=== PATIENT | male | born 1955 | race Caucasian/White ===

== ENCOUNTER 2020-12-29 10:27 | Outpatient (CLI) | payer MEDICARE, BC, SELFPAY ==
--- NOTE | 2020-12-29 11:30 | NEURO_ITS ---
Impression: # Complains of numbness of all extremities. # Bilateral Carpal Tunnel Syndrome. # No ulnar neuropathy. # Needle/EMG exam mild neurogenic changes in hands and feet. # Higher involvement such as myelopathy needs to be ruled out. Nerve Conduction Studies Anti Sensory Summary Table Stim Site NR Peak (ms) P-T Amp (?V) Site1 Site2 Delta-P (ms) Dist (cm) Tam (m/s) Left Median Anti Sensory (2-3nd Digit) Wrist 4.6 33.3 Wrist 2-3nd Digit 4.6 14.0 30 Wrist 4.9 16.3 Wrist 2-3nd Digit 4.6 14.0 30 Right Median Anti Sensory (2-3nd Digit) Wrist 5.5 25.2 Wrist 2-3nd Digit 5.5 14.0 25 Wrist 5.4 38.7 Wrist 2-3nd Digit 5.5 14.0 25 Left Radial Anti Sensory (Base 1st Digit) Wrist 2.8 19.8 Wrist Base 1st Digit 2.8 0.0 Right Radial Anti Sensory (Base 1st Digit) Wrist 3.3 16.3 Wrist Base 1st Digit 3.3 0.0 Left Sup Fibular Anti Sensory (Ant Lat Mall) 14 cm 4.0 4.2 14 cm Ant Lat Mall 4.0 16.0 40 Right Sup Fibular Anti Sensory (Ant Lat Mall) 14 cm 3.7 16.2 14 cm Ant Lat Mall 3.7 16.0 43 Left Sural Anti Sensory (Lat Mall) Calf 4.1 22.4 Calf Lat Mall 4.1 17.0 41 Right Sural Anti Sensory (Lat Mall) Calf 3.4 42.3 Calf Lat Mall 3.4 16.0 47 Left Ulnar Anti Sensory (5th Digit) Wrist 3.3 26.7 Wrist 5th Digit 3.3 14.0 42 Right Ulnar Anti Sensory (5th Digit) Wrist 3.2 31.0 Wrist 5th Digit 3.2 14.0 44 Motor Summary Table Stim Site NR Onset (ms) O-P Amp (mV) Site1 Site2 Delta-0 (ms) Dist (cm) Tam (m/s) Left Lateral Plantar Motor (ADM) Med Mall 5.3 0.9 Right Lateral Plantar Motor (ADM) Med Mall 5.2 0.9 Left Median Motor (Abd Poll Brev) Wrist 4.4 2.1 Elbow Wrist 5.6 28.0 50 Elbow 10.0 2.0 Right Median Motor (Abd Poll Brev) Wrist 4.9 1.9 Elbow Wrist 5.8 28.0 48 Elbow 10.7 1.8 Left Peroneal Motor (Vastus Med) Ankle 5.2 1.8 Popit Ankle 8.3 39.0 47 Popit 13.5 1.5 Right Peroneal Motor (Vastus Med) Ankle 4.2 2.3 Popit Ankle 7.7 37.0 48 Popit 11.9 2.2 Left Tibial Motor (Abd Monteiro Brev) Ankle 4.9 3.6 Knee Ankle 8.3 40.0 48 Knee 13.2 2.4 Right Tibial Motor (Abd Monteiro Brev) Ankle 4.6 6.0 Knee Ankle 9.3 40.0 43 Knee 13.9 4.5 Left Ulnar Motor (Abd Dig Minimi) Wrist 3.3 3.2 A Elbow Wrist 6.5 30.0 46 A Elbow 9.8 3.3 Right Ulnar Motor (Abd Dig Minimi) Wrist 3.3 4.4 A Elbow Wrist 6.9 31.0 45 A Elbow 10.2 3.5 F Wave Studies NR F-Lat (ms) L-R F-Lat (ms) Left Median (Mrkrs) (Abd Poll Brev) 30.82 1.11 Right Median (Mrkrs) (Abd Poll Brev) 31.93 1.11 Left Peroneal (Mrkrs) (EDB) 55.67 0.11 Right Peroneal (Mrkrs) (EDB) 55.77 0.11 Left Tibial (Mrkrs) (Abd Hallucis) 54.11 0.42 Right Tibial (Mrkrs) (Abd Hallucis) 54.53 0.42 Left Ulnar (Mrkrs) (Abd Dig Min) 33.92 2.51 Right Ulnar (Mrkrs) (Abd Dig Min) 31.40 2.51 EMG Side Muscle Nerve Root Ins Act Fibs Amp Dur Recrt Comment Right 1stDorInt Ulnar C8-T1 Nml Nml Nml Nml Nml Right Ext Indicis Radial (Post Int) C7-8 Nml Nml Nml Nml Nml Right Ext Digitorum Radial (Post Int) C7-8 Nml Nml Nml Nml Nml Right BrachioRad Radial C5-6 Nml Nml Nml Nml Nml Right
== END 2020-12-29 10:28 | disposition home or self-care (01) ==
PROVIDERS: PCP Family Medicine; Visit Provider Nurse Practitioner Family
DX: R20.2 Paresthesia of skin (principal); G56.03 Carpal tunnel syndrome, bilateral upper limbs
CPT/HCPCS: 95886; 95913

== ENCOUNTER 2021-01-16 15:32 | Outpatient (CLI) | payer MEDICARE, BC, SELFPAY ==
--- NOTE | ~2021-01-16 | MR_ITS ---
EXAMINATION: MR cervical spine wo/w con DATE: 01/16/2021 16:36 INDICATION: Cervical myelopathy. TECHNIQUE: Magnetic resonance imaging (MRI) of the cervical spine was performed without and with 15 m L MultiHance intravenous contrast. Sequences included sagittal and axial T2-weighted FSE, sagittal ST IR FSE, and sagittal and axial T1-weighted FSE. Postcontrast sequences included sagittal and axial T1 -weighted FS FSE. COMPARISON: None FINDINGS: There is 5 degrees dextrocurvature of cervical spine. Vertebral body heights are normal. Th ere is moderately decreased disc height at C3-C4 and severely decreased disc height from C4-C5 throug h C6-C7. There is edema and enhancement of the C3-C4 endplates, spinous processes, and interspinous l igament, consistent with degenerative inflammation. There is increased T2-weighted signal intensity i n the spinal cord at C3-C4, consistent with myelomalacia. The following disc levels are specifically discussed: C2-C3: The disc does not extend beyond the endplate margin. There is no uncovertebral joint osteoarth ritis. There is mild bilateral facet joint osteoarthritis. There is no neural foraminal stenosis. The re is no central canal stenosis. C3-C4: The disc is bulging and has an annular fissure. There is severe bilateral uncovertebral joint osteoarthritis. There is severe bilateral facet joint osteoarthritis. There is moderate right and sev ere left neural foraminal stenosis. There is severe central canal stenosis with ventral and dorsal in dentation of spinal cord and abnormal T2-weighted signal intensity of the spinal cord, consistent wit h myelomalacia. C4-C5: The disc is bulging. There is moderate right and severe left uncovertebral joint osteoarthriti s. There is moderate bilateral facet joint osteoarthritis. There is mild right and moderate left neur al foraminal stenosis. There is mild central canal stenosis. C5-C6: The disc is bulging. There is severe bilateral uncovertebral joint osteoarthritis. There is mi ld bilateral facet joint osteoarthritis. There is mild right and moderate left neural foraminal steno sis. There is mild central canal stenosis with ventral indentation of the spinal cord. C6-C7: The disc is bulging. There is severe bilateral uncovertebral joint osteoarthritis. There is mi ld bilateral facet joint osteoarthritis. There is mild right and moderate left neural foraminal steno sis. There is mild central canal stenosis. C7-T1: The disc does not extend beyond the endplate margin. There is no uncovertebral joint osteoarth ritis. There is severe right and moderate left facet joint osteoarthritis. There is mild bilateral ne ural foraminal stenosis. There is no central canal stenosis. IMPRESSION: 1. Myelomalacia at C3-C4. 2. Severe cervical spondylosis. Reviewed, dictated and finalized at location A. O FLOATER
[2021-01-16 16:00] LABS: Estimated Glomerular Filt Rate > 60
== END 2021-01-16 15:33 | disposition home or self-care (01) ==
PROVIDERS: PCP Family Medicine; Visit Provider Psychiatry & Neurology Neurology
DX: G95.89 Other specified diseases of spinal cord (principal); M47.812 Spondylosis without myelopathy or radiculopathy, cervical region
CPT/HCPCS: 72156; A9577

== ENCOUNTER 2023-11-01 16:03 | Inpatient (IN) | payer MEDICARE, BC, SELFPAY ==
[2023-11-01] VITALS (12 sets, daily range): BP systolic 74–105; BP diastolic 61–84; PULSE 121–158; RESP 13–32; TEMP 36.3–37.7; O2SAT 91–100; BMI 31.7
--- NOTE | ~2023-11-01 | CT_ITS ---
EXAMINATION: CT brain wo con DATE: 11/01/2023 17:47 INDICATION: Confusion TECHNIQUE: Computed tomography (CT) of the head was performed without intravenous contrast. The mA wa s adjusted according to patient size. Iterative reconstruction technique was employed. Exam dose: 68 1.00 mGy-cm total exam DLP. COMPARISON: None FINDINGS: Carotid siphon internal carotid artery calcifications are noted. No intracranial mass lesion or hemorrhage or cerebrovascular accident, midline shift or mass effect i s detected. There is nonspecific diminished attenuation of the cerebral white matter, likely due to c hronic small vessel ischemic changes. There is moderate cerebral and cerebellar volume loss. No subdural or epidural hematoma is detected. No fracture or bone destruction of the cranial vault is detected. There is opacification of some lower left mastoid air cells. The mastoid air cells and included paran osman sinuses are unremarkable. IMPRESSION: Cerebral atherosclerosis and chronic small vessel ischemic changes of the cerebral white matter No acute intracranial finding Left mastoid effusions Reviewed, dictated and finalized at Location A. Reviewed, dictated and finalized at location A. GEMENT SERVICES TECHNICIAN
--- NOTE | ~2023-11-01 | XR_ITS ---
EXAMINATION: XR chest 1V INDICATION: Altered mental status TECHNIQUE: Portable AP chest at 1657 hours COMPARISON: None available FINDINGS: Cardiomegaly is noted. Diffuse interstitial and airspace opacities are present. No pleural effusion or pneumothorax. There is advanced osteoarthritis of the glenohumeral joints. Surgical clips are noted in the right neck. There is severe thoracic spondylosis. IMPRESSION: 1. Diffuse lung disease, consistent with pneumonia/or pulmonary edema. 2. Cardiomegaly. Reviewed, dictated and finalized at location B. NFORMATICS PROGRAMMER
--- NOTE | 2023-11-01 16:07 | ECG_ITS ---
Measurements Intervals [place] Rate: 146 P: LA: 0 QRS: -77 QRSD: 137 T: 50 QT: 314 QTc: 490 Interpretive Statements ATRIAL FIBRILLATION WITH RAPID VENTRICULAR RESPONSE RIGHT BUNDLE BRANCH BLOCK [120+ ms QRS DURATION, UPRIGHT V1, 40+ ms S IN I/aVL/V4/V5/V6] PROBABLE OLD INFERIOR MN NO PREVIOUS ECG AVAILABLE FOR COMPARISON Electronically Signed On 11-02-2023 8:53:43 SOAP TENDER by Joan Sandy M.D.
--- NOTE | 2023-11-01 16:23 | PC.NURSE ---
2L NS bolus started per MD Menjivar at this time.
--- NOTE | 2023-11-01 16:25 | ED.GENADULT ---
HPI - General Adult General Chief complaint: Arrhythmia/Palpitations Stated complaint: afib Time Seen by Provider: 11/01/23 16:25 Source: EMS Mode of arrival: EMS History of Present Illness HPI narrative: 68 years old white male came from home by ambulance because of gradual deterioration over the last 4 weeks according to his speech. Patient is confused, does not take his medicine, does not go to his medical appointments, drinks daily, smokes cigarettes, unable to take care of him, today his situation got worse, more confused unable to stand up and walk, looks like dying. No family member came with the patient on arrival to the ED. I was able to speak to the on the phone who is telling me that she try get him to hospicel but she does not know how, patient is not compliant with medications, does not follow up with his physicians appointments, drinks daily Related Data Allergies Allergy/AdvReac Type Severity Reaction Status Date / Time sulfamethoxazole Allergy ITCHING Verified 07/14/13 12:59 trimethoprim Allergy ITCHING Verified 07/14/13 12:59 Review of Systems Review of Systems: ROS unobtainable: Yes unobtainable due to mental status Exam Narrative: General appearance: Well-developed, well-nourished, confused, restless, nasal cannula on Skin: Normal color, chronic stasis dermatitis of the lower extremities Head: Normocephalic, nontraumatic Eyes: Clear conjunctiva ENT: dry oral cavity Chest and respiratory: tachypneic, no rhonchi, no wheezing, no rales Heart: AFib with RVR at 160 -170 beats per minute Abdomen: guarding and diffuse tenderness Vascular: cold left foot, detectable posterior tibial pulse Neurologic: Alert oriented to his name only Course Vital Signs Vital signs: Vital Signs Temperature 36.3 C L 11/01/23 16:13 Pulse Rate 128 H 11/01/23 16:13 Respiratory Rate 24 H 11/01/23 16:13 Blood Pressure 90/65 L 11/01/23 16:13 Temperature 37.7 C H 11/01/23 16:51 Pulse Rate 149 H 11/01/23 19:06 Respiratory Rate 22 H 11/01/23 19:06 Blood Pressure 105/77 11/01/23 19:06 Pulse Oximetry 100 11/01/23 19:06 Medical Decision Making [facility] Narrative Medical decision making narrative: patient came was altered mental status, weakness, tachypnea, tachycardia. No family member at the bedside on arrival to the ED or even after coming to the ED. I was able to phone who requested comfort measures/hospice, does not want any labs or medications to prolong his life Diagnosis at the time of admission: Comfort measures/ hospice AFib with RVR, hypotension, hypokalemia Differential Diagnosis Differential Diagnosis: CVA, electrolyte imbalance, dehydration, infection, pneumonia, urinary tract infection, abdominal pathology Medical Records Medical records reviewed: Yes I reviewed the external patient's medical records. Vital Signs Vital Signs: Vital Signs Temperature 36.3 C L 11/01/23 16:13 Pulse Rate 128 H 11/01/23 16:13 Respiratory Rate 24 H 11/01/23 16:13 Blood Pressure 90/65 L 11/01/23 16:13 Temperature 37.7 C H 11/01/23 16:51 Pulse Rate 149 H 11/01/23 19:06 Respiratory Rate 22 H 11/01/23 19:06 Blood Pressure 105/77 11/01/23 19:06 Pulse Oximetry 100 11/01/23 19:06 Lab Data Lab results reviewed: Yes I reviewed the patient's lab results. 11/01/23 16:33 11/01/23 16:33 Labs: Lab Results 11/01/23 Range/Units 16:33 WBC 18.5 H (4.5-10.0) K/mm3 RBC 4.78 (4.6-6.20) M/mm3 Hgb 13.5 L (14.0-18.0) g/dL Hct 43.9 (42.0-52.0) % MCV 91.8 (80-100) fl MCH 28.2 (26-34) pg MCHC 30.8 L (32-36) g/dl
[2023-11-01] MEDS: SODIUM CHLORIDE 0.9% IV 1,000 ML 999 ML IV CONT ×3 (16:27→18:05)
[2023-11-01 16:42] LABS: Basophils Absolute Auto 0.1 K/mm3 (0.0-0.1); Basophils Percent Auto 0.4 % (0.2-1.2); Eosinophils Absolute Auto 0.1 K/mm3 (0-0.3); Eosinophils Percent Auto 0.6 % (0-4.4); Hematocrit 43.9 % (42.0-52.0); Hemoglobin 13.5 g/dL (14.0-18.0); Immature Granulocyte Percent A 0.5 % (0-0.5); Immature Platelet Fraction Pct 6.2 % (0.9-11.2); Lymphocytes Absolute Auto 0.35 K/mm3 (0.9-3.2); Lymphocytes Percent Auto 1.9 % (18.3-44.2); Mean Corpuscular HGB Conc 30.8 g/dl (32-36); Mean Corpuscular Hemoglobin 28.2 pg (26-34); Mean Corpuscular Volume 91.8 fl (80-100); Mean Platelet Volume 11.5 fl (7.4-10.4); Monocytes Absolute Auto 0.8 K/mm3 (0.1-0.6); Monocytes Percent Auto 4.4 % (2.6-8.5); Neutrophils Absolute Auto 17.1 K/mm3 (1.3-6.7); Neutrophils Percent Auto 92.2 % (45.5-73.1); Platelet Count Result 121 k/mm3 (150-375); Red Blood Count 4.78 M/mm3 (4.6-6.20); Red Cell Distribution Width 18.5 % (11.5-14.5); White Blood Count 18.5 K/mm3 (4.5-10.0)
[2023-11-01 16:53] LABS: INR 1.4; Prothrombin Time 18.1 Seconds (11.1-14.7)
[2023-11-01 16:54] LABS: Partial Thromboplastin Time 31.3 SECONDS (22.3-36.8)
[2023-11-01 16:56] LABS: Lactic Acid Reflex 3.3 mmol/L (0.7-2.0)
[2023-11-01 17:02] LABS: Alanine Aminotransferase 73 U/L (6-50); Albumin Level 2.8 g/dL (3.5-5.1); Alkaline Phosphatase 99 U/L (38-126); Anion Gap 9 mmol/L (8-16); Aspartate Amino Transferase 124 U/L (17-59); Bilirubin,Total 2.4 mg/dL (0.2-1.3); Blood Urea Nitrogen 24 mg/dL (9-20); Calcium 8.3 mg/dL (8.4-10.2); Carbon Dioxide 29 mmol/L (22-30); Chloride 96 mmol/L (98-107); Estimated Glomerular Filt Rate > 60; Glucose 157 mg/dL (65-110); Lipase 18 U/L (23-300); Potassium 2.9 mmol/L (3.4-5.0); Sodium 134 mmol/L (137-145)
[2023-11-01 17:03] LABS: Appearance Urine Clear (Clear); Bacteria Urine None Seen /hpf; Bilirubin Urine 1+ (Negative); Blood Urine Negative (Negative); Color Urine Dark Yellow (Yellow); Glucose Urine UA Negative (Negative); Ketones Urine Negative (Negative); Leukocyte Esterase Ur Trace LEU/UL (Negative); Need Manual Microscopic Reviewed; Nitrate Urine Negative (Negative); Protein Urine 1+ mg/dL (Negative); RBC Urine 0-2 /hpf (0-2); Specific Grav Ur 1.018 (1.001-1.035); Squamous Epithelial Cell Urine Occasional /hpf (Few); WBC Urine 0-5 /hpf; pH Urine 5.5 (5.0-9.0)
[2023-11-01 17:07] LABS: Troponin I 0.219 ng/mL (0.000-0.034)
[2023-11-01 17:09] LABS: Add Urine Microscopic? YES
[2023-11-01 17:15] LABS: CRP 19.1 mg/dL (<1.0)
--- NOTE | 2023-11-01 17:16 | PC.NURSE ---
Son of the pt Parker after speaking to Dr Menjivar, stated pt would be comfort measures
--- NOTE | 2023-11-01 17:33 | PC.NURSE ---
Per MD Menjivar patient is comfort care only.
[2023-11-01 17:37] LABS: Anisocytosis 1+ (NORMAL); Platelet Estimate Decreased (Adequate)
[2023-11-01 17:38] LABS: Burr Cells 1+ (NORMAL); Schistocytes None Seen (NORMAL)
[2023-11-01] MEDS: ONDANSETRON INJ 4 MG/2 ML VIAL IV PUSH (19:24)
[2023-11-01] MEDS: MORPHINE SULFATE (*CRX) 2 MG/ML INJ IV PUSH ×3 (19:24→23:58)
[2023-11-01 19:38] LABS: Reflex Lactic Acid Yes or No Add Lactic
--- NOTE | 2023-11-01 20:10 | ADMGEN ---
This patient, Deo Hidalgo, was admitted to Medical Room 345-01. Patient/family oriented to hospital policies and general routines including ID bracelet, bed and alarms, visiting hours, pain management, procedures, bathroom and other care routines, personal items, smoking policy, room service/diet, and visiting hours. Information on how to activate the Rapid Response Team has been discussed. Patient/Family are encouraged to report perceived risks to care and to ask questions if they do not understand what they are told or what they should do.
[2023-11-01 20:30] LABS: Lactic Acid 2.5 mmol/L (0.7-2.0)
--- NOTE | 2023-11-01 20:32 | PM.IMHP ---
H&P: HPI History of Present Illness Date/Time: 11/01/23 20:32 Chief Complaint: Altered mental status Narrative: EXAMINATION: XR chest 1V INDICATION: Altered mental status TECHNIQUE: Portable AP chest at 1657 hours COMPARISON: None available FINDINGS: Cardiomegaly is noted. Diffuse interstitial and airspace opacities are present. No pleural effusion or pneumothorax. There is advanced osteoarthritis of the glenohumeral joints. Surgical clips are noted in the right neck. There is severe thoracic spondylosis. IMPRESSION: 1. Diffuse lung disease, consistent with pneumonia/or pulmonary edema. 2. Cardiomegaly. EXAMINATION: CT brain wo con DATE: 11/01/2023 17:47 INDICATION: Confusion TECHNIQUE: Computed tomography (CT) of the head was performed without intravenous contrast. The mA was adjusted according to patient size. Iterative reconstruction technique was employed. Exam dose:? 681.00 mGy-cm total exam DLP.? COMPARISON: None FINDINGS: Carotid siphon internal carotid artery calcifications are noted. No intracranial mass lesion or hemorrhage or cerebrovascular accident, midline shift or mass effect is detected. There is nonspecific diminished attenuation of the cerebral white matter, likely due to chronic small vessel ischemic changes. There is moderate cerebral and cerebellar volume loss. No subdural or epidural hematoma is detected. No fracture or bone destruction of the cranial vault is detected. There is opacification of some lower left mastoid air cells. The mastoid air cells and included paranasal sinuses are unremarkable. IMPRESSION:? Cerebral atherosclerosis and chronic small vessel ischemic changes of the cerebral white matter No acute intracranial finding Left mastoid effusions Review of Systems Review of Systems: Was brought to the emergency room was by himself, patient is circumstantial can not really provide meaningful detailed to history taking ROS unobtainable: Yes other (Patient is a poor historian) [facility] Family History Family History (Updated 11/01/23 @ 22:04 by Grisel Riojas RN) Other Unknown family medical history Social History Social History Smoking packs per day: 1 Smoking cigarettes per day: 20.0 Smoking status: Current every day smoker Tobacco type: cigarettes Meds Home Medications and Allergies Home Medications Medication Instructions Recorded Confirmed Type furosemide 40 mg tablet 40 mg PO BID 11/01/23 11/01/23 History Allergies Allergy/AdvReac Type Severity Reaction Status Date / Time sulfamethoxazole Allergy ITCHING Verified 11/01/23 20:01 trimethoprim Allergy ITCHING Verified 11/01/23 20:01 Vital Signs Vital Signs - 24 hr 11/01/23 16:13 11/01/23 16:22 11/01/23 16:23 Temperature 97.3 F L Pulse Rate 128 H 148 H Respiratory Rate 24 H Blood Pressure 90/65 L Pulse Oximetry 92 11/01/23 16:34 11/01/23 16:35 11/01/23 16:51 Temperature 97.3 F L 100 F H Pulse Rate 156 H Respiratory Rate 32 H Blood Pressure 95/84 L Pulse Oximetry 92 11/01/23 17:33 11/01/23 18:07 11/01/23 18:47 Temperature Pulse Rate 151 H 158 H 132 H Respiratory Rate 17 19 13 Blood Pressure 99/61 L 79/67 L Pulse Oximetry 99 100 11/01/23 19:06 11/01/23 20:09 Temperature 97.8 F Pulse Rate 149 H 121 H Respiratory Rate 22 H 20 Blood Pressure 105/77 74/64 L Pulse Oximetry 100 91 Exam Narrative: Patient is laying in bed Const: General: comfortable, no acute distress, well developed, alert, awake and average body habitus Nutritional Appearance: average body habitus Orientation/consciousness: patient oriented x3 Other: Looks older than stated age HENMT: Head: normal to inspection, normocephalic and atraumatic Ears: hearing grossly normal bilaterally Face/Nose/Sinus: normal facial exam Face and sinus: normal facial exam Eyes: General: appearance normal, both eyes and all related structures Pupils: Equal, rou
--- NOTE | 2023-11-01 21:01 | PC.NURSE ---
BOX COVERER HAND NOTIFIED THIS NURSE THAT PATIENT IS NON COMPLIANT WITH O2 USE. SAT 91% ON 4L NC. PATIENT WAS EDUCATED ON O2 NEEDS.
--- NOTE | 2023-11-02 | ECHO_ITS ---
Patient Info Name: Deo Hidalgo Age: 68 years : 1955 Gender: Male Ht: 68 in Wt: 208 lbs BSA: 2.16 m2 HR: 65 bpm BP: 70 / 50 mmHg Heart Rhythm: Atrial Fibrillation Technical Quality: Good Exam Date: 11/02/2023 9:27 AM Exam Location: Echo Lab Patient Status: Inpatient Admit Date: 11/01/2023 Staff Ordering Physician: Liam Humphrey MD Pollution Control Chemist: Lisha Bang RDCS Attending Provider: Connor Voss MD Referring Physician: Milagro MACEDO; Exam Type: CA echo doppler color flow Study Info Indications - a-fib Complete two-dimensional, color flow and Doppler transthoracic echocardiogram is performed. Summary 1. Complete two-dimensional, color flow and Doppler transthoracic echocardiogram is performed. 2. Mild left ventricular enlargement with mild left ventricular hypertrophy. Severe global hypokinesis with akinesis of the apex, and an estimated ejection fraction of 20-25%. When the patient's heart rate slows down, his contractility improves. Grade 2 diastolic dysfunction is present. 3. Mild right ventricular enlargement and hypokinesis. 4. Left atrial chamber dimension is moderately enlarged. 5. Right atrial chamber dimension is moderately enlarged. 6. There is mild to moderate mitral valve regurgitation. 7. There is mild tricuspid valve regurgitation. 8. Mild pulmonary hypertension, estimated pulmonary arterial systolic pressure is 46 mmHg. 9. Dilated inferior vena cava with <50% collapse upon inspiration consistent with significantly elevated right atrial pressure, 20 mmHg. 10. Atrial fibrillation with a rapid ventricular response. 11. Probable left pleural effusion. Left Ventricle Left ventricular chamber dimension is normal. Left ventricular systolic function is severely reduced, estimated at 20-25%. There is mildly increased left ventricular wall thickness. Left ventricular septal wall motion is normal. The left ventricular diastolic function is grade II diastolic dysfunction. Right Ventricle Right ventricular chamber dimension is mildly enlarged. Right ventricular systolic function is reduced. Left Atria Left atrial chamber dimension is moderately enlarged. Right Atria Right atrial chamber dimension is moderately enlarged. Aortic Valve The aortic valve is trileaflet. There is moderate aortic valve sclerosis. There is no aortic valve stenosis. There is no aortic valve regurgitation. Pulmonic Valve The pulmonic valve is normal. There is no pulmonic valve stenosis. There is no pulmonic regurgitation. Mitral Valve The mitral valve has thickened leaflets. There is no mitral valve stenosis. There is mild to moderate mitral valve regurgitation. Tricuspid Valve The tricuspid valve leaflets are normal. There is no significant tricuspid valve stenosis. There is mild tricuspid valve regurgitation. Mild pulmonary hypertension, estimated pulmonary arterial systolic pressure is 46 mmHg. Pericardium/Pleural The pericardium appears normal. There is trivial pericardial effusion. Inferior Vena Cava Dilated inferior vena cava with <50% collapse upon inspiration consistent with significantly elevated right atrial pressure, 20 mmHg. Aorta The aortic root size at the sinus of Valsalva is normal. The prox ascending aorta size is normal. Left Ventricular Outflow Tract Name Value Normal LVOT 2D
[2023-11-02 03:22] VITALS: BP 70/50; PULSE 65; RESP 16; TEMP 36.7; O2SAT 98
[2023-11-02] MEDS: MORPHINE SULFATE (*CRX) 2 MG/ML INJ IV PUSH ×4 (03:33→12:44)
[2023-11-02] MEDS: LORazepam INJ (*CRX) 2 MG/ML VIAL IV PUSH (05:28)
[2023-11-02] MEDS: AZITHROMYCIN 500 MG/NS 250 ML 500 MG/250 ML BAG 250 MG IVPB (05:32)
[2023-11-02] MEDS: cefTRIAXone 2 GM/NS 100 ML 2 GM/100 ML BAG IVPB (05:32)
[2023-11-02 08:47] VITALS: O2SAT 92
[2023-11-02 10:27] VITALS: PULSE 130
[2023-11-02] MEDS: LORazepam INJ (*CRX) 2 MG/ML VIAL 1 MG IV PUSH (10:53)
--- NOTE | 2023-11-02 11:39 | PC.NURSE ---
RN found oxygen tubing on floor next to patient's bed. RN attempted to put oxygen back on patient, but patient is shaking head and throwing hands up refusing to keep oxygen on.
--- NOTE | 2023-11-02 13:48 | PM.IMPN ---
Progress Note: A&P Assessment and Plan (1) Atrial fibrillation with rapid ventricular response: Code(s): I48.91 - Unspecified atrial fibrillation Status: Chronic (2) Hypokalemia: Code(s): E87.6 - Hypokalemia Status: Acute (3) Altered mental status: Code(s): R41.82 - Altered mental status, unspecified Status: Acute (4) Lung infiltrate: Code(s): R91.8 - Other nonspecific abnormal finding of lung field Status: Acute Plan Patient is comfort measures only. Orders in place and awaiting [facility] hospice evaluation. Subjective Date/time seen: 11/02/23 13:48 Interval history: Patient is lying in bed at time of exam. It has been confirmed by with care coordination that she wants comfort measures only and wants evaluation for hospice. Stopped all additional testing, medication and will provide comfort measures only. Awaiting [facility] evaluation. Would likely be candidate for inpatient hospice due to his bacteremia, atrial fibrillation and rapidly declining state. Review of Systems Review of Systems: ROS unobtainable: Yes unobtainable due to medical condition Exam Narrative: Patient is laying in bed General appearance: Ill-appearing, restless, nasal cannula on Skin: Normal color, chronic stasis dermatitis of the lower extremities Head: Normocephalic, nontraumatic Eyes: Clear conjunctiva ENT: dry oral cavity Chest and respiratory: tachypneic, no rhonchi, no wheezing, no rales Heart: AFib with RVR. Irregularly irregular Abdomen: guarding and diffuse tenderness Vascular: cold left foot, pedal pulses present. Objective Data Vital Signs Vital Signs: Vital Signs - 24 hr 11/01/23 16:13 11/01/23 16:22 11/01/23 16:23 Temperature 97.3 F L Pulse Rate 128 H 148 H Respiratory Rate 24 H Blood Pressure 90/65 L Pulse Oximetry 92 Oxygen Delivery Oxygen Flow Rate 11/01/23 16:34 11/01/23 16:35 11/01/23 16:51 Temperature 97.3 F L 100 F H Pulse Rate 156 H Respiratory Rate 32 H Blood Pressure 95/84 L Pulse Oximetry 92 Oxygen Delivery Oxygen Flow Rate 11/01/23 17:33 11/01/23 18:07 11/01/23 18:47 Temperature Pulse Rate 151 H 158 H 132 H Respiratory Rate 17 19 13 Blood Pressure 99/61 L 79/67 L Pulse Oximetry 99 100 Oxygen Delivery Oxygen Flow Rate 11/01/23 19:06 11/01/23 20:09 11/01/23 20:00 Temperature 97.8 F Pulse Rate 149 H 121 H Respiratory Rate 22 H 20 Blood Pressure 105/77 74/64 L Pulse Oximetry 100 91 92 Oxygen Delivery Nasal Cannula Oxygen Flow Rate 4 11/02/23 03:22 11/02/23 08:47 11/02/23 10:27 Temperature 98.1 F Pulse Rate 65 130 H Respiratory Rate 16 Blood Pressure 70/50 L Pulse Oximetry 98 92 Oxygen Delivery Nasal Cannula Oxygen Flow Rate 4 Intake/Output Intake/Output: Intake & Output 10/30/23 10/31/23 11/01/23 11/02/23 23:59 23:59 23:59 23:59 Intake Total 3000 700 Balance 3000 700 Meds/Results Medications: Active Medications Generic Name Dose Route Start Last Admin Trade Name Freq PRN Reason Stop Dose Admin Acetaminophen 650 mg 11/02/23 10:27 Acetaminophen 650 Mg Suppository RECTAL Q6H PRN Mild Pain (1-3) or Fever Acetaminophen 650 mg 11/02/23 10:27 Acetaminophen 325 Mg Tablet PO Q4H PRN Mild Pain (1-3) or Fever Artificial Tears 1 drop 11/02/23 10:27 Artificial Tears Ophth Soln 15 Ml Bottle EACH EYE Q4H PRN Dry Eye(s) Atropine Sulfate 1 drop 11/02/23 10:27 Atropine Sulfate 1% Ophth Soln 5 Ml Bottle SUBLINGUAL Q4H PRN Secretions Lorazepam 1 mg 11/02/23 10:27 11/02/23 10:53 Lorazepam Inj (*Crx) 2 Mg/Ml Vial IV PUSH 1 mg Q2H PRN Administration Anxiety or air hunger Morphine Sulfate 2 mg 11/01/23 17:55 11/02/23 12:44 Morphine Sulfate (*Crx) 2 Mg/Ml Inj IV PUSH 2 mg Q30M PRN Administration COMFORT Morphine Sulfate 2 mg 11/02/23 10:27 Morph
--- NOTE | 2023-11-12 15:39 | P.DS_ITS ---
DS: Admitting Diagnosis Discharge Date 11/02/23 Admitting Diagnosis altered mental status DS: Discharge Diagnosis Discharge Diagnosis (1) Atrial fibrillation with rapid ventricular response: Code(s): I48.91 - Unspecified atrial fibrillation Status: Chronic (2) Hypokalemia: Code(s): E87.6 - Hypokalemia Status: Acute (3) Altered mental status: Code(s): R41.82 - Altered mental status, unspecified Status: Acute (4) Lung infiltrate: Code(s): R91.8 - Other nonspecific abnormal finding of lung field Status: Acute Plan Patient is comfort measures only. Orders in place and discharging to [facility] hospice evaluation. DS: Summary Hospital Course Hospital Course: Patient is lying in bed at time of exam. It has been confirmed by with care coordination that she wants comfort measures only and wants evaluation for hospice. Stopped all additional testing, medication and will provide comfort measures only. [facility] evaluated and d/c to inpatient hospice due to his bacteremia, atrial fibrillation and rapidly declining state. Status at Discharge Functional status at discharge: bed bound Overall status at discharge: patient is not back to baseline Time Spent with Patient Time attestation: Total time spent providing and/or coordinating discharge services: Exam Narrative: Patient is laying in bed at time of discharge date: General appearance: Ill-appearing, restless, nasal cannula on Skin: Normal color, chronic stasis dermatitis of the lower extremities Head: Normocephalic, nontraumatic Eyes: Clear conjunctiva ENT: dry oral cavity Chest and respiratory: tachypneic, no rhonchi, no wheezing, no rales Heart: AFib with RVR. Irregularly irregular Abdomen: guarding and diffuse tenderness Vascular: cold left foot, pedal pulses present. Discharge Plan Discharge Attending physician on discharge: Marky Cristina Consulting providers: Liam Humphrey V.; Joe Beck; Magan Vanegas; Joan Sandy Discharging Clinician: Karie Membreno Anticipated Discharge Date/Time: 11/12/23 15:36 Patient Disposition: Hospice - Medical Facility Discharge Medications: No Action furosemide 40 mg Tablet 40 mg PO BID Date of admission: 11/01/23 17:53 Primary Care Provider: TreyMigdalia Admitting Provider: Connor Voss Attending physician on admission: Karie Membreno Condition: Critical
== END 2023-11-02 14:45 | disposition hospice, inpatient (51) | DRG 309 ==
LOC: ANHED 17:52 → ANH3MEDSUR 18:40 → ANH3MED 19:02
PROVIDERS: Admitting Provider Hospitalist; Emergency Provider Emergency Medicine; PCP Family Medicine; Visit Provider Nurse Practitioner
DX: I48.91 Unspecified atrial fibrillation (principal); R78.81 Bacteremia; E87.6 Hypokalemia; R91.8 Other nonspecific abnormal finding of lung field; R41.82 Altered mental status, unspecified; Z51.5 Encounter for palliative care
CPT/HCPCS: 36415; 70450; 71045; 80053; 81001; 83605; 83690; 84484; 85025; 85055; 85610; 85730; 86140; 87040; 87147; 87181; 87186; 93005; 93306; 96360; 99285; A9270; J0456; J0696; J2060; J2270; J2405; J7030

== ENCOUNTER 2023-11-02 14:46 | HOS | payer OTHER, MEDICARE, BC, SELFPAY ==
[2023-11-02 15:36] VITALS: BMI 31.7
[2023-11-02] MEDS: MORPHINE SULFATE INJ (*CRX) 50 MG in SODIUM CHLORIDE 0.9% IV 95 ML IV CONT (15:41)
[2023-11-02] MEDS: MORPHINE SULFATE (*CRX) 4 MG/ML INJ IV PUSH (15:44)
[2023-11-02] MEDS: LORazepam INJ (*CRX) 2 MG/ML VIAL 0.5 MG IV PUSH (15:55)
--- NOTE | 2023-11-02 16:29 | P.HP_ITS ---
H&P: HPI History of Present Illness Date/Time: 11/02/23 16:29 Chief Complaint: uncontrolled dyspnea Narrative: ?68 year old white male came from home by ambulance because of gradual deterioration over the last 4 weeks with?increased confusion, refusing medicine, drinks daily and continues to smoke cigarettes. was unable to take care of him and due to his worsening confusion and dyspnea, called EMS to transport to ED. She expressed her desire to initiate comfort measures on inpatient hospice service. Review of Systems Review of Systems: ROS unobtainable: Yes unobtainable due to medical condition PMFSH Past Medical History Medical History (Updated 11/02/23 @ 16:41 by Ron Ponce MD) Alcohol use disorder Family History Family History Other Unknown family medical history Social History Social History (Updated 11/02/23 @ 16:30 by Ron Ponce MD) Social History: Code Status: DNR Smoking packs per day: 1 Smoking cigarettes per day: 20.0 Smoking status: Current every day smoker Tobacco type: cigarettes Meds Home Medications and Allergies Home Medications Medication Instructions Recorded Confirmed Type furosemide 40 mg tablet 40 mg PO BID 11/01/23 11/02/23 History Allergies Allergy/AdvReac Type Severity Reaction Status Date / Time sulfamethoxazole Allergy ITCHING Verified 11/01/23 20:01 trimethoprim Allergy ITCHING Verified 11/01/23 20:01 Exam Narrative: Mildly tachypneic No JVD Coarse BS Heart irregular and tachycardic w/o murmur Extr 1+ ankle edema Abd hypoactive BS MS no gross deformity to visual inspection Neuro CN symmetric to visual inspection Assessment and Plan Assessment and plan (1) Palliative care encounter: Code(s): Z51.5 - Encounter for palliative care Status: Acute Assessment and Plan: * Meets inpatient hospice criteria due to requiring continuous IV morphine for control of dyspnea * PRN palliative medications also ordered * Scheduled phenobarbital and prn lorazepam for alcohol withdrawal (2) Atrial fibrillation with rapid ventricular response: Code(s): I48.91 - Unspecified atrial fibrillation Status: Chronic (3) Altered mental status: Code(s): R41.82 - Altered mental status, unspecified Status: Acute (4) Nicotine dependence: Code(s): F17.200 - Nicotine dependence, unspecified, uncomplicated Status: Acute (5) Alcohol use disorder: Code(s): F10.90 - Alcohol use, unspecified, uncomplicated Status: Acute (6) Congestive heart failure: Code(s): I50.9 - Heart failure, unspecified Status: Acute
[2023-11-02] MEDS: PHENobarbitaL sodium (*CRX) 130 MG/ML VIAL 60 MG IV PUSH (17:55)
[2023-11-02 20:00] VITALS: BP 112/58; PULSE 91; RESP 44; TEMP 36.4; O2SAT 97
[2023-11-02 20:48] VITALS: O2SAT 97
[2023-11-03] MEDS: PHENobarbitaL sodium (*CRX) 130 MG/ML VIAL 60 MG IV PUSH ×2 (00:47→05:23)
[2023-11-03 00:54] VITALS: RESP 26
[2023-11-03] MEDS: LORazepam INJ (*CRX) 2 MG/ML VIAL 0.5 MG IV PUSH (05:23)
[2023-11-03] MEDS: GLYCOPYRROLATE INJ (*SP) 0.2 MG/ML VIAL 0.1 MG IV PUSH (05:30)
--- NOTE | 2023-11-03 10:30 | PC.NURSE ---
[facility] notified that patient is ready to be picked up. They will pick him up once he is in the morgue.
--- NOTE | 2023-11-04 17:38 | P.DN_ITS ---
Discharge Summary Date and Time Date of : 11/03/23 Time of : 06:40 Provider Pronounced By: Fredi Probable Cause of Probable Cause of : congestive heart failure Summary Hospital Course: Admitted to inpatient hospice service for symptom management. Medications titrated to comfort. Mr. Hidalgo peacefully. Additional Data Confirmation of as documented by pronouncing clinician: Pupillary Reflex, Palpable Pulses, Response to Stimuli, Heart Tones and Breath Sounds Name of Provider Notified: Dr. Ponce/ YANETH Time Provider Notified: 06:55 Provider Requests Autopsy: No Family Requests Autopsy: No [facility] Notified: Yes Date [facility] Notified of : 11/03/23 Time [facility] Notified of : 06:55
== END 2023-11-03 06:40 | disposition expired | DRG 951 ==
PROVIDERS: Admitting Provider Internal Medicine; PCP Family Medicine; Visit Provider Internal Medicine
DX: Z51.5 Encounter for palliative care (principal); I48.20 Chronic atrial fibrillation, unspecified; I50.9 Heart failure, unspecified; R41.82 Altered mental status, unspecified; F17.210 Nicotine dependence, cigarettes, uncomplicated; F10.90 Alcohol use, unspecified, uncomplicated; Z66 Do not resuscitate
CPT/HCPCS: A9270; J2060; J2270; J2560